=== PATIENT | male | born 1965 | race Caucasian/White ===

== ENCOUNTER 2017-04-10 17:24 | Emergency (ER) | payer OTHER ==
[~2017-04-10] VITALS: Ht 175.3 cm; Wt 59.5 kg
[~2017-04-10 17:24] MED LIST: B1 PO; FOLI-49 PO; HYDR-3010 PO; IBUP400T22 PO; LORA-444 PO; OMEP20CA9 PO; PHEN100C PO; RESPERIDONE PO; ROB750 PO
[2017-04-10 17:38] VITALS: Ht 175.3 cm; Wt 59.5 kg
[2017-04-10] MEDS ORDERED: HYDROCODONE/APAP (5/325) TAB PO ONE (18:30)
--- NOTE | 2017-04-10 19:16 | RADRPT ---
PROCEDURE: XR Chest. CLINICAL INDICATION: Chest pain. Trauma TECHNIQUE: PA and lateral view of the chest were obtained COMPARISON: None FINDINGS: The cardiomediastinal silhouette is within normal limits. The lungs and pleural spaces are clear. The soft tissues and osseous structures are unremarkable. IMPRESSION: No acute cardiopulmonary disease. RPTAT: [facility]PNM Physician Shae Date Time Electronically viewed and signed by Luis Miguel Melvin Physician on 04/10/2017 19:16 /
[2017-04-10] MEDS ORDERED: IBUP-1542 PO (19:22)
--- NOTE | 2017-04-10 19:52 | ERA ---
ER Documentation Chief Complaint Date/Time DATE: 04/10/17 TIME: 19:48 Chief Complaint BACK PAIN S/P SLIP AND FALL HPI Mechanical fall. Patient is a 52-year-old male who complains of right lateral back pain. Patient fell 1 hour ago. Patient denies trauma to any other areas. Patient denies back pain or symptoms radiating or loss of bowel or bladder control. Patient is able to localize the pain with one finger. Patient has no other complaints at this time. ROS All systems reviewed and are negative except as per history of present illness. Medications Home Meds Active Scripts Ibuprofen* (Motrin*) 600 Mg Tab, 600 MG PO Q6H Y for PAIN AND OR ELEVATED TEMP, #30 TAB Prov:ABHILASH GARG PA-C 04/10/17 Ibuprofen* (Motrin*) 400 Mg Tab, 400 MG PO Q6, #15 TAB Prov:KINSEY SILVERIO PA-C 09/11/16 Reported Medications [Resperidone] No Conflict Check, 1 MG PO HS 03/10/13 Omeprazole* (Prilosec*) 20 Mg Capsule.dr, 1 CAP PO TID 03/10/13 Phenytoin* Sodium Extended (Dilantin*) 100 Mg Capsule, 3 CAP PO HS 03/10/13 Methocarbamol (Robaxin) 750 Mg Tab, 1 TAB PO BID 03/10/13 Lorazepam* (Ativan*) 2 Mg Tablet, 1 TAB PO HS 03/10/13 Hydroxyzine Hcl* (Hydroxyzine Hcl*) 10 Mg Tablet, 1 TAB PO HS 03/10/13 Folic Acid* (Folic Acid*) 1 Mg Tablet, 1 MG PO DAILY 03/10/13 [B1] No Conflict Check, 1 TAB PO DAILY 03/10/13 Allergies Allergies: Coded Allergies: rosuvastatin calcium (Verified Allergy, Severe, itching all over, 04/10/17) PMhx/Soc Medical and Surgical Hx: pt denies Surgical Hx History of Surgery: No Anesthesia Reaction: No Hx Neurological Disorder: Yes (SEIZURE) Hx Respiratory Disorders: No Hx Cardiac Disorders: Yes (HDL) Hx Psychiatric Problems: No Hx Miscellaneous Medical Probl: No Hx Alcohol Use: Yes (2-3 BEERS DAILY) Hx Substance Use: No Hx Tobacco Use: Yes (10 CIGS DAILY) Smoking Status: Current every day smoker Physical Exam Vitals Vital Signs Date Time Temp Pulse Resp B/P Pulse Ox O2 Delivery O2 Flow Rate FiO2 04/10/17 17:38 98.0 93 18 123/78 99 Physical Exam Const: Well-appearing in mild distress 52-year-old male. Head: Atraumatic Eyes: Normal Conjunctiva ENT: Normal External Ears, Nose and Mouth. Neck: Full range of motion..~ No meningismus. Resp: Clear to auscultation bilaterally Cardio: Regular rate and rhythm, no murmurs Abd: Soft, non tender, non distended. Normal bowel sounds Skin: No petechiae or rashes Back: No midline or flank tenderness. Right posterior chest wall pain is moderately tender to palpation. Ext: No cyanosis, or edema Neur: Awake and alert Psych: Normal Mood and Affect Results 24 hrs Current Medications Medications (Trade) Dose Ordered Sig/Ofe Route PRN Reason Start Time Stop Time Status Last Admin Dose Admin Acetaminophen/ Hydrocodone Bitart (Canby (5/325)) 1 tab ONCE ONCE PO 04/10/17 18:30 04/10/17 18:31 DC Procedures/MDM Patient is complaining of chest pain status post mechanical fall 1 hour. Will obtain an x-ray. Canby has been given for symptom relief currently. X-ray was unremarkable. Patient has no neuro findings at this time I have very low suspicion for any spinal cord involvement. Most likely diagnosis is swelling from the versus costochondritis. Will discharge patient with ibuprofen. Patient will also be discharged with discharge instructions and return precautions. Patient's vitals are stable and is discharged at this time. Departure Diagnosis: Primary Impression: Back pain Qualified Code: M54.6 - Acute right-sided thoracic back pain Additional Impression: Fall Qualified Code: W19.XXXA - Fall, initial encounter Condition: Stable Patient Instructions: Back Pain (Acute Or Chronic) Additional Instructions: Follow up with your PCP within the next 1-3 days for a more thorough evaluation and a possible referral to a specialist. Return the the emergency department immediately if symptoms worsen or change. If you have any questions regarding medications, ask your pharmacist or us before you leave. If any adverse reactions occur while taking your medications, discontinue the treatment and return to the emergency department immediately. Take your medications as directed, and complete the entire course of treatment. ABHILASH GARG PA-C April 10, 2017 19:52
== END 2017-04-10 20:19 | disposition home or self-care (01) ==
LOC: FTE 17:24
DX: M54.6 Pain in thoracic spine (principal); F17.210 Nicotine dependence, cigarettes, uncomplicated; Z04.3 Encounter for examination and observation following other accident
CPT/HCPCS: 71020

== ENCOUNTER 2018-02-05 18:17 | Emergency (ER) | END 2018-02-05 21:58 | disposition home or self-care (01) ==

== ENCOUNTER 2019-06-07 19:48 | Emergency (ER) | payer OTHER ==
[~2019-06-07] VITALS: Wt 66.0 kg
[~2019-06-07 19:48] MED LIST changes: +ACET500C5 PO; +FAMO-96 PO; -HYDR-3010 PO; +HYDR-3029 PO; +IBUP-1542 PO; +IBUP-1561 PO; -IBUP400T22 PO; +ONDA4TAB14 PO
[2019-06-07 19:57] VITALS: BP 123/71; PULSE 102; RESP 20
[2019-06-07] MEDS ORDERED: IBUPROFEN 600 MG TAB PO ONE (21:30)
[2019-06-07] MEDS ORDERED: IBUP-1542 PO (23:00)
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
== END 2019-06-08 00:46 | disposition home or self-care (01) ==
LOC: FTE 19:48
DX: S90.31XA Contusion of right foot, initial encounter (principal); F17.210 Nicotine dependence, cigarettes, uncomplicated; V49.49XA Driver injured in collision with other motor vehicles in traffic accident, initial encounter
CPT/HCPCS: 73590; 81003